=== PATIENT | female | born 1970 | race African-American/Black ===

== ENCOUNTER 2016-12-15 09:41 | Emergency (ER) | payer SELFPAY ==
[~2016-12-15] VITALS: Ht 167.6 cm; Wt 87.0 kg
[~2016-12-15 09:41] MED LIST: FLAG500T PO
[2016-12-15 09:49] VITALS: BP 138/75; PULSE 84; RESP 16; TEMP 98.6; O2SAT 99
[2016-12-15 10:01] LABS: BLOOD, URINE TRACE (NEG); GLUCOSE,URINE NEG (NEG); KETONE, URINE NEG (NEG); NITRITE,URINE NEG (NEG); PH, URINE 5.5 (5.0-8.5)
[2016-12-15 10:03] LABS: METHOD OF COLLECTION CLEAN CATCH; URINE COLOR YELLOW (YELLW/STRAW)
[2016-12-15] MEDS ORDERED: IBUP-232 PO ×2 (10:04→11:35)
[2016-12-15 10:05] LABS: MUCUS URINE FEW /lpf (OCC); RBC, URINE 0-3 /hpf (0-3); WBC, URINE 0-2 /hpf (0-5)
[2016-12-15 10:06] LABS: SQUAMOUS EPITHELIAL CELL URINE > 8 /hpf (0-5)
[2016-12-15] MEDS ORDERED: KETOROLAC TROMETHAMINE 30 MG/ML (IVP) VIAL IVP ONE (10:15)
[2016-12-15] MEDS ORDERED: SODIUM CHLORIDE 0.9% FLUSH 5 ML FLUSH IVF PRN (10:15)
--- NOTE | 2016-12-15 10:22 | PD ---
HPI Chief Complaint: Abdominal Pain Time Seen by Provider: 10:01 Travel History International Travel<30 days: No Contact w/Intl Traveler<30days: No Traveled to known affect area: No History of Present Illness HPI Patient is a 46-year-old female who presents to emergency room with complaints of right-sided flank, right-sided back pain and right-sided abdominal pain. Patient reports that she has been symptomatic for the past couple weeks. Patient denies any recent traumas or any inciting incidents which brought on her symptoms. 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 Reports that the symptoms have been intermittent in nature, reports that symptoms were worse this morning. Patient did take an ibuprofen and had mild relief of symptoms. Patient reports concern as she also has had a fever couple days ago, reports that she did feel nauseous yesterday, did not vomit. Reports that "something feels off". Patient denies history of kidney stones in the past, denies dysuria, urinary urgency or frequency. Patient denies hematuria. Reports that the pain is worse at nighttime and with movement. Denies fevers or chills at this time. No chest pain or shortness of breath. Patient did take a Motrin earlier this morning. Patient denies any recent travels. PFSH Past Medical History Diminished Hearing: No Influenza Vaccination: No ?: Not Past Surgical History Hysterectomy: Yes Family History Family History: Negative Social History Alcohol Use: No Tobacco Use: No Substance Use: No Allergies-Medications (Allergen,Severity, Reaction): Coded Allergies: No Known Allergies (Verified , 12/15/16) Reported Meds & Prescriptions Reported Meds & Active Scripts Active Reported Ibuprofen 600 Mg Tab 600 Mg PO Q6H PRN Review of Systems General / Constitutional: No: Fever Eyes: No: Visual changes HENT: No: Headaches Cardiovascular: No: Chest Pain or Discomfort Respiratory: No: Shortness of Breath Gastrointestinal: Positive: Nausea, Abdominal Pain, No: Vomiting, Constipation Genitourinary: Positive: Flank Pain, No: Urgency, Frequency, Dysuria, Pelvic Pain Musculoskeletal: No: Pain Skin: No Rash Neurologic: No: Weakness Psychiatric: No: Depression Endocrine: No: Polydipsia Hematologic/Lymphatic: No: Easy Bruising Physical Exam Narrative GENERAL: nad, nontoxic SKIN: Warm and dry. HEAD: Atraumatic. Normocephalic. EYES: Pupils equal and round. No scleral icterus. No injection or drainage. ENT: No nasal bleeding or discharge. Mucous membranes pink and moist. NECK: Trachea midline. No JVD. CARDIOVASCULAR: Regular rate and rhythm. No murmur appreciated. RESPIRATORY: No accessory muscle use. Clear to auscultation. Breath sounds equal bilaterally. GASTROINTESTINAL: Abdomen soft, mildly tender to rlq with no rebound or guarding on exam MUSCULOSKELETAL: No obvious deformities. No clubbing. No cyanosis. No edema. Patient with right sided mid to lower paraspinal muscle tenderness NEUROLOGICAL: Awake and alert. No obvious cranial nerve deficits. Motor grossly within normal limits. Normal speech. PSYCHIATRIC: Appropriate mood and affect; insight and judgment normal. Data Data Last Documented VS Vital Signs Date Time Temp Pulse Resp B/P Pulse Ox O2 Delivery O2 Flow Rate FiO2 12/15/16 10:01 16 12/15/16 09:49 98.6 84 138/75 99 Orders Ua Includes Microscopic (12/15/16 09:53) Complete Blood Count With Diff (12/15/16 10:08) Comprehensive Metabolic Panel (12/15/16 10:08) Ct Abd/Pel W/O Iv Contrast (12/15/16 10:08) Iv Access Insert/Monitor (12/15/16 10:08) Sodium Chloride 0.9% Flush (Ns Flush) (12/15/16 10:15) Ketorolac Inj (Toradol Inj) (12/15/16 10:15) Morphine Inj (Morphine Inj) (12/15/16 11:00) Labs Laboratory Tests Test 12/15/16 12/15/16 09:50 10:33 Urine Collection Type CLEAN CATCH Urine Color YELLOW Urine Turbidity CLEAR Urine pH 5.5 Urine Specific [place] 1.025 Urine Protein NEG mg/dL Urine Glucose (UA) NEG mg/dL Urine Ketones NEG mg/dL Urine Occult Blood TRACE Urine Nitrite NEG Urine Bilirubin NEG Urine Leukocyte Esterase NEG Urine RBC 0-3 /hpf Urine WBC 0-2 /hpf Urine Squamous Epithelial > 8 /hpf Cells Urine Mucus FEW /lpf Urine Collection Time 09:50 White Blood Count 8.4 TH/MM3 Red Blood Count 4.26 MIL/MM3 Hemoglobin 12.9 GM/DL Hematocrit 38.2 % Mean Corpuscular Volume 89.7 FL Mean Corpuscular Hemoglobin 30.3 PG Mean Corpuscular Hemoglobin 33.7 % Concent Red Cell Distribution Width 12.6 % Platelet Count 210 TH/MM3 Mean Platelet Volume 8.9 FL Neutrophils (%) (Auto) 62.7 % Lymphocytes (%) (Auto) 22.5 % Monocytes (%) (Auto) 8.8 % Eosinophils (%) (Auto) 1.2 % Basophils (%) (Auto) 4.8 % Neutrophils # (Auto) 5.3 TH/MM3 Lymphocytes # (Auto) 1.9 TH/MM3 Monocytes # (Auto) 0.7 TH/MM3 Eosinophils # (Auto) 0.1 TH/MM3 Basophils # (Auto) 0.4 TH/MM3 CBC Comment DIFF FINAL Differential Comment Sodium Level 139 MEQ/L Potassium Level 3.5 MEQ/L Chloride Level 105 MEQ/L Carbon Dioxide Level 24.8 MEQ/L Anion Gap 9 MEQ/L Blood Urea Nitrogen 7 MG/DL Creatinine 0.63 MG/DL Estimat Glomerular Filtration 124 ML/MIN Rate Random Glucose 97 MG/DL Calcium Level 8.2 MG/DL Total Bilirubin 0.5 MG/DL Aspartate Amino Transf 8 U/L (AST/SGOT) Alanine Aminotransferase 15 U/L (ALT/SGPT) Alkaline Phosphatase 65 U/L Total Protein 7.6 GM/DL Albumin 3.7 GM/DL MDM Medical Decision Making Medical Screen Exam Complete: Yes Emergency Medical Condition: Yes Interpretation(s) Vital Signs Date Time Temp Pulse Resp B/P Pulse Ox O2 Delivery O2 Flow Rate FiO2 12/15/16 10:01 16 12/15/16 09:49 98.6 84 16 138/75 99 CBC & BMP Diagram 12/15/16 10:33 Last Impressions Abdomen/Pelvis CT 12/15/16 1008 Signed Impressions: Service Date/Time: Thursday, December 15, 2016 10:16 - CONCLUSION: Unremarkable exam. The kidneys are within normal limits with no renal calculi or obstruction. Saeed Cesar MD Differential Diagnosis Pyleonephritis, cystitis, nephrolithiasis, muscle strain, appendicitis Narrative Course Patient is a 46-year-old female who presents to emergency room with complaints of right-sided back pain with right lower quadrant pain for the past few weeks. Reports that symptoms have been ongoing for the past week but worse this morning. Patient reports that she did take some Motrin today with mild relief of symptoms. Patient with no history of kidney stones in the past, denies hematuria, dysuria, urinary urgency or frequency. Overall, patient nontoxic evaluation. Patient does have right-sided flank pain with also right-sided mid to lower paraspinal tenderness and tenderness to right lower quadrant. She could potentially have a kidney stone versus appendicitis versus pyelonephritis. IV was established, will give patient IV fluids and pain medications. Labs ordered as well as CAT scan of the abdomen and pelvis for further evaluation of symptoms. cbc CBC 8.4 Hemoglobin 12.9 Hematocrit 38.2 Platelets 210 BMP Sodium 139 Chloride 105 Potassium 3.5 BUN 7 Creatinine 0.63 UA Trace blood, negative leuk esterase, negative nitrites CT of the abdomen and pelvis: Last Impressions Abdomen/Pelvis CT 12/15/16 1008 Signed Impressions: Service Date/Time: Tuesday, December 15, 2016 10:16 - CONCLUSION: Unremarkable exam. The kidneys are within normal limits with no renal calculi or obstruction. Saeed Cesar MD Copies of patient's study was given to patient. Patient has been having right- sided flank pain, paraspinal tenderness the right mid to lower back as well as some tenderness to right lower quadrant, no obvious findings on today studies. Symptoms have been ongoing for the past few weeks, patient with most likely muscle strain. I did discuss with patient that I cannot completely rule out appendicitis at this time as she may have an early appendicitis brewing. Her labs all look normal and she does not appear to have any infection at this time. Reviewed signs and symptoms of acute abdomen with patient. Discussed with patient need to follow-up with a primary care doctor. She will return to emergency room if symptoms persist or return. Diagnosis Primary Impression: Muscle strain Additional Impressions: Abdominal pain Qualified Code: R10.31 - Right lower quadrant abdominal pain Strain of lumbar paraspinal muscle Qualified Code: S39.012A - Strain of lumbar paraspinal muscle, initial encounter Patient Instructions: General Instructions, Narcotic given in the ED Departure Forms: Tests/Procedures, Work Release Enter return to work date: Dec 16, 2016 Additional Instructions: Please provide patient with a copy of her lab work and studies at discharge Please follow-up with your primary care doctor Return to the emergency room as needed Return to emergency with symptoms persist or worsen Do not drive while taking medications for muscle spasms Med/Other Pt SpecificInfo: Prescription(s) given Scripts Diazepam (Valium)5 Mg Tab5 Mg PO HS PRN (SPASM) 5 Days Ref 0 Prov:Erica Abdullahi DO 12/15/16 Ibuprofen 600 Mg [id number] Mg PO Q6H PRN (Pain/Inflammation) #40 TAB Ref 0 Prov:Erica Abdullahi DO 12/15/16 Disposition: 01 DISCHARGE HOME Condition: Fair Erica Abdullahi DO Dec 15, 2016 10:22
--- NOTE | 2016-12-15 10:37 | RADHPO ---
EXAM DATE/TIME: 12/15/2016 10:16 [facility] COMPARISON: No previous studies available for comparison. INDICATIONS : Bilateral flank pain. ORAL CONTRAST: No oral contrast ingested. RADIATION DOSE: 17.54 CTDIvol (mGy) MEDICAL HISTORY : None SURGICAL HISTORY : Hysterectomy. ENCOUNTER: Initial ACUITY: 3 weeks PAIN SCALE: 8/10 LOCATION: Bilateral flank TECHNIQUE: Volumetric scanning of the abdomen and pelvis was performed. Using automated exposure control and ad justment of the mA and/or kV according to patient size, radiation dose was kept as low as reasonably achievable to obtain optimal diagnostic quality images. FINDINGS: LOWER LUNGS: The visualized lower lungs are clear. LIVER: Homogeneous density without lesion. There is no dilation of the biliary tree. No calcified gallston es. SPLEEN: Normal size without lesion. PANCREAS: Within normal limits. KIDNEYS: Normal in size and shape. There is no mass, stone, or hydronephrosis. ADRENAL GLANDS: Within normal limits. VASCULAR: There is no aortic aneurysm. BOWEL/MESENTERY: The stomach, small bowel, and colon demonstrate no acute abnormality. There is no free intraperitone al air or fluid. ABDOMINAL WALL: Within normal limits. RETROPERITONEUM: There is no lymphadenopathy. BLADDER: No wall thickening or mass. REPRODUCTIVE: Within normal limits. INGUINAL: There is no lymphadenopathy or hernia. MUSCULOSKELETAL: Within normal limits for patient age. CONCLUSION: Unremarkable exam. The kidneys are within normal limits with no renal calculi or obst ruction. Saeed Cesar MD on December 15, 2016 at 10:29 Board Certified Radiologist. This report was verified electronically.
[2016-12-15 10:39] LABS: AUTOMATED NEUTROPHIL # 5.3 TH/MM3 (1.8-7.7); BASOPHIL # 0.4 TH/MM3 (0-0.2); BASOPHIL % 4.8 % (0.0-2.0); EOSINOPHIL # 0.1 TH/MM3 (0-0.4); EOSINOPHIL % 1.2 % (0.0-4.0); HEMATOCRIT 38.2 % (35.0-46.0); HEMO FLAGS DIFF FINAL; LYMPH % 22.5 % (9.0-44.0); LYMPHOCYTE # 1.9 TH/MM3 (1.0-4.8); MEAN CELL VOLUME 89.7 FL (80.0-100.0); MEAN CORPUSCULAR HEMOGLOBIN 30.3 PG (27.0-34.0); MEAN CORPUSCULAR HGB CONC 33.7 % (32.0-36.0); MONO % 8.8 % (0.0-8.0); NEUT % 62.7 % (16.0-70.0); PLATELET COUNT 210 TH/MM3 (150-450); RED BLOOD COUNT 4.26 MIL/MM3 (4.00-5.30); RED CELL DISTRIBUTION WIDTH 12.6 % (11.6-17.2); WHITE BLOOD COUNT 8.4 TH/MM3 (4.0-11.0)
[2016-12-15 10:45] LABS: CHLORIDE 105 MEQ/L (98-107); POTASSIUM 3.5 MEQ/L (3.5-5.1); SODIUM (NA) 139 MEQ/L (136-145)
[2016-12-15 10:50] LABS: ANION GAP 9 MEQ/L (5-15); BICARBONATE 24.8 MEQ/L (21.0-32.0); BLOOD UREA NITROGEN 7 MG/DL (7-18)
[2016-12-15 10:53] LABS: ALT (GPT) 15 U/L (10-53); AST (GOT) 8 U/L (15-37); GLOMERULAR FILTRATION RATE 124 ML/MIN (>89)
[2016-12-15 10:54] LABS: TOTAL BILIRUBIN ADULT 0.5 MG/DL (0.2-1.0)
[2016-12-15 10:56] LABS: ALKALINE PHOSPHATASE 65 U/L (45-117)
[2016-12-15] MEDS ORDERED: MORPHINE SULFATE 4 MG/ML INJ IV PUSH ONE (11:00)
[2016-12-15] MEDS ORDERED: DIAZ5 PO (11:35)
[2016-12-15 11:37] VITALS: BP 102/60; PULSE 88; RESP 18; O2SAT 99
== END 2016-12-15 11:49 | disposition home or self-care (01) ==
LOC: PHED 09:41
DX: S39.012A Strain of muscle, fascia and tendon of lower back, initial encounter (principal); R10.31 Right lower quadrant pain; X58.XXXA Exposure to other specified factors, initial encounter
CPT/HCPCS: 74176; 80053; 81001; 85025; 96374; 99284; J2270

== ENCOUNTER 2018-02-10 09:10 | Emergency (ER) | payer OTHER ==
[~2018-02-10] VITALS: Ht 167.6 cm; Wt 89.0 kg
[~2018-02-10 09:10] MED LIST changes: +DIAZ5 PO; -FLAG500T PO; +IBUP-232 PO
[2018-02-10 09:13] VITALS: BP 140/74; PULSE 89; RESP 20; TEMP 101.4; O2SAT 99
[2018-02-10 09:23] VITALS: BP 135/82; PULSE 85; RESP 18; TEMP 99.5; O2SAT 98
[2018-02-10] MEDS ORDERED: IBUPROFEN 600 MG TAB PO ONE (10:00)
[2018-02-10] MEDS ORDERED: SODIUM CHLOR 0.9% 1000 ML INJ 1,000 ML IV ONE (10:00)
[2018-02-10] MEDS ORDERED: ONDANSETRON HCL 4 MG/2 ML VIAL IV PUSH ONE (10:00)
--- NOTE | 2018-02-10 10:27 | PD ---
HPI Chief Complaint: Fever Time Seen by Provider: 09:54 Travel History International Travel<30 days: No Contact w/Intl Traveler<30days: No Traveled to known affect area: No History of Present Illness HPI This is a 47-year-old female with no significant past medical history, presents today with complaint of fevers, chills, body aches. Patient reports the symptoms started roughly 4 days ago. 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 She reports she has contact with multiple people with viral type syndrome. Patient reports not having the influenza immunization this year. She reports mild bifrontal headache. No neck stiffness. No vomiting or diarrhea. Patient reports normal urine output. She reports taking ibuprofen and last dose was last night roughly 9 PM. There is a dry cough with no production. No other complaints at the time of my examination. PFSH Past Medical History Diminished Hearing: No Medical other: Yes (CYST L PALM) ?: Not Past Surgical History Hysterectomy: Yes Social History Alcohol Use: No Tobacco Use: No Substance Use: No Allergies-Medications (Allergen,Severity, Reaction): Coded Allergies: No Known Allergies (Verified Adverse Reaction, Unknown, 02/10/18) Reported Meds & Prescriptions Reported Meds & Active Scripts Active No Active Prescriptions or Reported Medications Review of Systems Except as stated in HPI: all other systems reviewed are Neg General / Constitutional: Positive: Fever, Chills HENT: Positive: Headaches (Mild bifrontal), No: Neck Stiffness, Neck Pain Cardiovascular: No: Chest Pain or Discomfort, Palpitations Respiratory: Positive: Cough, No: Shortness of Breath (Dry with no production) , Wheezing Gastrointestinal: No: Nausea, Vomiting, Diarrhea, Abdominal Pain Genitourinary: No: Dysuria, Decreased Urinary Output Musculoskeletal: Positive: Myalgias, Weakness (Generalized) Neurologic: Positive: Weakness (General), Headache (Mild bifrontal) Physical Exam Narrative GENERAL: Well-developed well-nourished female in no acute respiratory distress. SKIN: Focused skin assessment warm/dry. HEAD: Atraumatic. Normocephalic. EYES: No scleral icterus. No injection or drainage. ENT: No nasal bleeding or discharge. Mucous membranes pink and moist. NECK: Trachea midline. No JVD. Supple. CARDIOVASCULAR: Regular rate and rhythm. No murmur appreciated. RESPIRATORY: No accessory muscle use. Clear to auscultation. Breath sounds equal bilaterally. GASTROINTESTINAL: Abdomen soft, non-tender, nondistended. Hepatic and splenic margins not palpable. MUSCULOSKELETAL: No obvious deformities. No clubbing. No cyanosis. No edema. NEUROLOGICAL: Awake and alert. No obvious cranial nerve deficits. Motor grossly within normal limits. Normal speech. Data Data Last Documented VS Vital Signs Date Time Temp Pulse Resp B/P (MAP) Pulse Ox O2 Delivery O2 Flow Rate FiO2 02/10/18 09:23 99.5 85 18 135/82 (99) 98 Room Air Orders Orders Influenzae A/B Antigen (02/10/18 09:54) Iv Access Insert/Monitor (02/10/18 09:54) Ecg Monitoring (02/10/18 09:54) Oximetry (02/10/18 09:54) Ibuprofen (Motrin) (02/10/18 10:00) Ondansetron Inj (Zofran Inj) (02/10/18 10:00) Sodium Chlor 0.9% 1000 Ml Inj (Ns 1000 M (02/10/18 10:00) MDM Medical Decision Making Medical Screen Exam Complete: Yes Emergency Medical Condition: Yes Differential Diagnosis Influenza versus viral syndrome versus bronchitis Narrative Course 47-year-old female presents today with fever, myalgias, dry cough. Patient has clear lungs on exam. The patient's been given 600 mg of Motrin. She is also been given a liter of IV fluid and 4 mg of Zofran. She states she feels much improved. She will be discharged with a prescription for Tessalon Perles. She also instructed to use Motrin 600 mg every 6-8 hours as needed for the body aches. She is instructed to return if she feels any worse. Diagnosis Primary Impression: Viral syndrome Additional Instructions: Motrin 600 mg every 6-8 hours for the next 2-3 days as needed. Drink plenty of fluid. Tessalon Perles for cough. Please make sure you swallow the pill whole when taking them. Med/Other Pt SpecificInfo: Prescription(s) given Scripts Benzonatate (Tessalon Perles) 100 Mg Cap 100 MG PO TID Y for COUGH, #15 CAP 0 Refills Prov: Rod Alexis MD 02/10/18 Disposition: 01 DISCHARGE HOME Condition: Stable Rod Alexis MD Feb 10, 2018 10:27
[2018-02-10 11:00] VITALS: O2SAT 98
[2018-02-10] MEDS ORDERED: BENZ100 PO (11:51)
== END 2018-02-10 13:07 | disposition home or self-care (01) ==
LOC: NEPC 09:10
DX: B34.9 Viral infection, unspecified (principal); R51 Headache; R05 Cough
CPT/HCPCS: 87804; 96374; 99284; J2405; J7030